=== PATIENT | male | born 1980 | race Caucasian/White ===

== ENCOUNTER 2018-02-07 22:31 | Emergency (ER) | payer OTHER ==
[~2018-02-07] VITALS: Ht 160 cm; Wt 86.2 kg
[2018-02-07] MEDS ORDERED: IBUPROFEN 200200 M1 PO (22:38)
[2018-02-07] MEDS ORDERED: TYLOPHEN500 MG PO (22:39)
[2018-02-07] MEDS ORDERED: NAPROSYN500 MG PO (22:45)
[2018-02-07] MEDS ORDERED: ULTRAM 50MG TAB50 MG PO (22:45)
[2018-02-07 23:00] VITALS: BP 117/80
== END 2018-02-07 23:00 | disposition home or self-care (01) ==
LOC: ER 22:31
DX: K02.9 Dental caries, unspecified (principal)